=== PATIENT | female | born 1960 | race American Indian/Alaskan Native ===

== ENCOUNTER 2018-06-17 02:38 | Emergency (ER) | payer OTHER ==
--- NOTE | 2018-06-17 03:08 | ED PDOC ---
Arrival/HPI - General Chief Complaint: Lower Extremity Problem/Injury Time Seen by Provider: 06/17/18 03:00 Historian: Patient - History of Present Illness Narrative History of Present Illness (Text): 06/17/18 03:06 58 year old female, whose past medical history includes HIV and Asthma, presents to the emergency department complaining of lower leg swelling specifically to the ankles which patient has chronically. Patient states she has some discomfort to the ankles. She denies any history of trauma. Patient is able to ambulate without any difficulty. Patient denies any fever, chills, chest pain, shortness of breath, nausea, vomiting, diarrhea, urinary symptoms, back pain, neck pain, headache, dizziness, or any other complaints. Symptom Onset: Gradual Symptom Course: Unchanged Activities at Onset: Light Context: Home Past Medical History - Provider Review Nursing Documentation Reviewed: Yes - Infectious Disease Hx of Infectious Diseases: None - Pulmonary Hx Respiratory Disorders: No Hx Asthma: Yes - Neurological Hx Neurological Disorder: No - Psychiatric Hx Substance Use: No - Surgical History Hx Tubal Ligation: Yes - Anesthesia Hx Anesthesia: No Family/Social History - Physician Review Nursing Documentation Reviewed: Yes Family/Social History: No Known Family HX Smoking Status: Smoker Currrent Status Unknown Hx Alcohol Use: No Hx Substance Use: No Allergies/Home Meds Allergies/Adverse Reactions: Allergies No Known Allergies Allergy (Verified 06/17/18 02:51) Review of Systems - Physician Review All systems were reviewed & negative as marked: Yes - Review of Systems Constitutional: absent: Fevers, Other (Chills) Respiratory: absent: SOB Cardiovascular: absent: Chest Pain Gastrointestinal: absent: Diarrhea, Nausea, Vomiting Genitourinary Female: absent: Dysuria, Frequency, Hematuria Musculoskeletal: Other (Swelling to the ankles ). absent: Back Pain, Neck Pain Neurological: absent: Headache, Dizziness Physical Exam Vital Signs Reviewed: Yes Vital Signs Temp Pulse Resp BP Pulse Ox 06/17/18 04:44 98.1 F 72 17 125/72 100 06/17/18 03:09 98.2 F 82 17 108/57 L 100 Temperature: Afebrile Blood Pressure: Normal Pulse: Regular Respiratory Rate: Normal Appearance: Positive for: Well-Appearing, Non-Toxic, Comfortable Pain Distress: None Mental Status: Positive for: Alert and Oriented X 3 - Systems Exam Head: Present: Atraumatic, Normocephalic Pupils: Present: PERRL Extroacular Muscles: Present: EOMI Conjunctiva: Present: Normal Mouth: Present: Moist Mucous Membranes Neck: Present: Normal Range of Motion Respiratory/Chest: Present: Clear to Auscultation, Good Air Exchange. No: Respiratory Distress, Accessory Muscle Use Cardiovascular: Present: Regular Rate and Rhythm, Normal S1, S2. No: Murmurs Abdomen: No: Tenderness, Distention, Peritoneal Signs Back: Present: Normal Inspection Upper Extremity: Present: Normal Inspection. No: Cyanosis, Edema Lower Extremity: Present: Normal ROM (FROM ), Swelling (mild nonedematous swelling to the bilateral ankle/foot area), Neurovascularly Intact. No: Edema, CALF TENDERNESS (or swelling), Tenderness (no palpable tenderness), Erythema ( no overlining erythema) Neurological: Present: GCS=15, CN II-XII Intact, Speech Normal Skin: Present: Warm, Dry, Normal Color. No: Rashes Psychiatric: Present: Alert, Oriented x 3, Normal Insight, Normal Concentration Medical Decision Making ED Course and Treatment: 06/17/18 03:06 Impression: 58 year old female presents complaining of swelling to the bilateral ankle/foot area. Plan: -- Labs -- Duplex Lower Extrem Vein Bilat US -- Reassess and disposition Progress Notes: 06/17/18 04:23 Duplex Lower Extrem Vein Bilat US: Negative 06/17/18 04:46 On re-evaluation, patient feels better and is in no acute distress. I have discussed the results and plan with the patient, who expresses understanding. Patient in agreement with plan to be discharged home. Patient is stable for discharge. Patient was instructed to follow up with physician or return if symptoms worsen or new concerning symptoms arise. - Lab Interpretations Lab Results: 06/17/18 03:17 06/17/18 03:17 Lab Results 06/17/18 03:17: WBC 9.9, RBC 3.88, Hgb 12.3, Hct 36.3, MCV 93.6, MCH 31.7, MCHC 33.9, RDW 14.0, Plt Count 228, MPV 10.6 06/17/18 03:17: Sodium 142, Potassium 3.9, Chloride 106, Carbon Dioxide 25, Anion Gap 14, BUN 14, Creatinine 1.1, Est GFR ( Amer) > 60, Est GFR (Non- Af Amer) 51, Random Glucose 102, Calcium 9.4, Total Bilirubin 0.4, AST 31, ALT 27, Alkaline Phosphatase 49, Total Protein 7.8, Albumin 4.3, Globulin 3.5, Albumin/Globulin Ratio 1.2 I have reviewed the lab results: Yes - RAD Interpretation Radiology Orders: 06/17/18 03:05 DUPLEX LOWER EXTRM VEIN BILAT [US] Stat - Medication Orders Current Medication Orders: Discontinued Medications Ibuprofen (Motrin Tab) 600 mg PO STAT STA Stop: 06/17/18 04:34 Last Admin: 06/17/18 04:42 Dose: 600 mg - Scribe Statement The provider has reviewed the documentation as recorded by the Werner Franco Provider Marthaibe Attestation: All medical record entries made by the Marthaibadam were at my direction and personally dictated by me. I have reviewed the chart and agree that the record accurately reflects my personal performance of the history, physical exam, medical decision making, and the department course for this patient. I have also personally directed, reviewed, and agree with the discharge instructions and disposition. Disposition/Present on Arrival - Present on Arrival Any Indicators Present on Arrival: No History of DVT/PE: No History of Uncontrolled Diabetes: No Urinary Catheter: No History of Decub. Ulcer: No History Surgical Site Infection Following: None - Disposition Have Diagnosis and Disposition been Completed?: Yes Diagnosis: Arthritis Disposition: HOME/ ROUTINE Disposition Time: 04:34 Patient Plan: Discharge Condition: GOOD Discharge Instructions (ExitCare): Osteoarthritis (DC) Additional Instructions: Take medication as prescribed/follow up in the clinic this week Prescriptions: Naproxen [Naprosyn] 500 mg PO BID PRN #14 tab PRN Reason: Pain Referrals: [facility] [Outside] - Follow up with primary Allie Washburn MD [Medical Doctor] - Follow up with primary Forms: [employer] (Niuean)
[2018-06-17 03:12] VITALS: RESP 17; O2SAT 100
[2018-06-17 03:41] LABS: HEMOGLOBIN 12.3 g/dL (12.0-16.0); MEAN CELL VOLUME 93.6 fl (80.0-105.0); MEAN CORPUSCULAR HEMOGLOBIN 31.7 pg (25.0-35.0); MEAN CORPUSCULAR HGB CONC 33.9 g/dl (31.0-37.0); MEAN PLATELET VOLUME 10.6 fl (7.0-11.0); RBC 3.88 10^6/uL (3.5-6.1); WHITE BLOOD COUNT 9.9 10^3/ul (4.5-11.0)
[2018-06-17 03:51] LABS: ALB/GLOB RATIO 1.2 (1.1-1.8); ALBUMIN 4.3 g/dL (3.0-4.8); ALT/SGPT 27 U/L (7-56); AST/SGOT 31 U/L (14-36); BLOOD UREA NITROGEN 14 mg/dL (7-21); CALCIUM 9.4 mg/dL (8.4-10.5); GFR NON-AFRICAN AMERICAN 51
[2018-06-17 04:45] VITALS: BP 125/72; PULSE 72; TEMP 98.1
--- NOTE | 2018-06-17 17:31 | US ---
HISTORY: Leg pain and swelling. Evaluate for DVT PHYSICIAN(S): Jose Calero MD. TECHNIQUE: Duplex sonography and color-flow Doppler with graded compression were used to evaluate the deep venous systems of both lower extremities. FINDINGS: The visualized deep venous systems of both lower extremities are sonographically normal and compressible. Normal wave forms and augmentation are seen. There is no sonographic evidence for deep venous thrombosis in the visualized segments of both lower extremities. IMPRESSION: No sonographic evidence for deep venous thrombosis in the visualized segments of both lower extremities.
== END 2018-06-17 04:44 | disposition home or self-care (01) ==
LOC: MERGE 02:38 → ED 02:38
DX: M19.90 Unspecified osteoarthritis, unspecified site (principal)